=== PATIENT | female | born 1995 | race African-American/Black ===

== ENCOUNTER 2018-02-26 20:37 | Emergency (ER) | payer SELFPAY ==
[2018-02-26 21:15] VITALS: BP 117/61
[2018-02-26] MEDS ORDERED: AZITHROMYCIN 250 MG TABLET PO ONE (22:00)
[2018-02-26] MEDS ORDERED: PREDNISONE 20 MG TABLET PO ONE (22:00)
[2018-02-26] MEDS ORDERED: HYDROCODONE/ACETAMINOPHEN 5-325 MG (6 TAB/ER DISP) PO PRN (22:02)
--- NOTE | 2018-02-26 22:02 | ER Document Report ---
ED General - General Mode of Arrival: Ambulatory Information source: Patient TRAVEL OUTSIDE OF THE [place] IN LAST 30 DAYS: No - General Chief Complaint: Ear Pain Stated Complaint: EAR PAIN Time Seen by Provider: 02/26/18 21:44 Notes: Patient is a 22 year old female with no significant medical history presents to the emergency department complaining of left ear pain, onset today, and sinus congestion onset 3 days ago. Patient's associated symptoms include a fever onset 2 days ago and a non productive cough. 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 (KARY GIANG) - Related Data Allergies/Adverse Reactions: No Known Allergies Allergy (Verified 02/26/18 20:42) Past Medical History - General Information source: Patient - Social History Smoking Status: Unknown if Ever Smoked Family History: Reviewed & Not Pertinent Patient has suicidal ideation: No Patient has homicidal ideation: No Review of Systems - Review of Systems Constitutional: See HPI, Fever EENT: See HPI, Ear pain, Nose congestion, Sinus pressure Cardiovascular: No symptoms reported Respiratory: See HPI, Cough Gastrointestinal: No symptoms reported Genitourinary: No symptoms reported Female Genitourinary: No symptoms reported Musculoskeletal: No symptoms reported Skin: No symptoms reported Hematologic/Lymphatic: No symptoms reported Neurological/Psychological: No symptoms reported -: Yes All other systems reviewed and negative Physical Exam - Vital signs Vitals: Temp Pulse Resp BP Pulse Ox 98.6 F 59 L 12 117/61 100 02/26/18 21:14 02/26/18 21:14 02/26/18 21:14 02/26/18 21:14 02/26/18 21:14 - Notes Notes: GENERAL: Alert, interacts well. No acute distress. HEAD: Normocephalic, atraumatic. EYES: Pupils equal, round, and reactive to light. Extraocular movements intact. ENT: Oral mucosa moist, tongue midline. Nares patent, no nasal septal hematoma. Left TM is erythematous and bulging. Right TM has some erythema and retracted. Tender to palpation over left maxillary sinus. NECK: Full range of motion. Supple. Trachea midline. LUNGS: Clear to auscultation bilaterally, no wheezes, rales, or rhonchi. No respiratory distress. HEART: Regular rate and rhythm. No murmurs, gallops, or rubs. EXTREMITIES: Moves all 4 extremities spontaneously. NEUROLOGICAL: Alert and oriented x3. Normal speech. PSYCH: Normal affect, normal mood. SKIN: Warm, dry, normal turgor. No rashes or lesions noted. (KARY GIANG) - Vital Signs Vital signs: Temp Pulse Resp BP Pulse Ox 98.6 F 59 L 12 117/61 100 02/26/18 21:14 02/26/18 21:14 02/26/18 21:14 02/26/18 21:14 02/26/18 21:14 Discharge - Discharge Clinical Impression: Left otitis media with effusion, Viral upper respiratory tract infection with cough Sinusitis Qualifiers: Sinusitis location: maxillary Chronicity: acute Recurrence: non-recurrent Qualified Code(s): J01.00 - Acute maxillary sinusitis, unspecified Condition: Stable Disposition: HOME, SELF-CARE Additional Instructions: Otitis Media: You have a middle ear infection (otitis media). This is usually a complication of a cold or sore throat. The middle ear cavity becomes filled with infection. Pressure and stretching of the ear drum cause pain. Antibiotics are required. A decongestant may be recommended if you have a "runny nose." A follow-up exam may be recommended to make sure the infection has completely cleared. If the ear begins to drain, it means the ear drum has ruptured. This will usually heal spontaneously. However, it means you should keep the ear dry until re-examined by a doctor. Call the physician or return for examination at once if there is severe headache, stiff neck, confusion, increasing fever, or dizziness. You should improve significantly within two days. If you're not better, call the doctor. Sinusitis: You have sinusitis, an infection of the sinus cavities of the face. The sinuses are air-filled chambers which open into the inside of the nose. Bacteria and pus fill a sinus, causing pain, drainage, and fever. Sinusitis is treated with antibiotics. Often, expectorants (to thin the sinus mucous) or decongestants (to reduce swelling) are prescribed as well. Healing requires seven to 10 days. Avoid chemical fumes, pollens, dusts, and smoke (especially cigarette smoke ). Keep the air humidified in your bedroom and work area and take plenty of liquids by mouth. This condition can be serious if the infection spreads. If your symptoms worsen, or if you develop severe headache, high fever, stiff neck, or a rash, you must call the doctor or return for re-evaluation. Start the prednisone and the azithromycin as prescribed tomorrow. Plenty of fluids and get plenty of rest. Take the pain medication as dispensed a night if needed. Tomorrow take ibuprofen and Tylenol for pain if needed. Try Afrin nose spray on the left side to help open the eustachian tube and drain the left middle ear if the prednisone and taking decongestants does not help. Follow-up with a local medical doctor if not improving. RETURN TO THE EMERGENCY ROOM IF ANY NEW OR WORSENING SYMPTOMS. Prescriptions: Azithromycin [Zithromax 250 mg Tablet] 250 mg PO DAILY #4 tablet Prednisone [Deltasone 10 mg Tablet] 10 mg PO ASDIR PRN #15 tablet PRN Reason: Forms: Return to Work Referrals: DEEPTHI ANTON MD [NO LOCAL MD] - Follow up as needed Scribe Attestation: 02/26/18 22:07 I personally performed the services described in the documentation, reviewed and edited the documentation which was dictated to the scribe in my presence, and it accurately records my words and actions. (KYLAH COREAS) [employer] Documentation - Scribe Written by Radha:: Radha Rodriguez, 02/26/2018 22:19 acting as scribe for :: Allie
== END 2018-02-26 22:24 | disposition home or self-care (01) ==
LOC: ER 20:37
DX: H65.92 Unspecified nonsuppurative otitis media, left ear (principal); J01.00 Acute maxillary sinusitis, unspecified; B97.89 Other viral agents as the cause of diseases classified elsewhere; H92.02 Otalgia, left ear; R09.81 Nasal congestion; R50.9 Fever, unspecified; R05 Cough
CPT/HCPCS: 99282; J7512

== ENCOUNTER 2019-04-12 09:53 | Emergency (ER) | payer BC ==
[2019-04-12] MEDS ORDERED: ACETAMINOPHEN 325 MG TABLET PO ONE (11:32)
--- NOTE | 2019-04-12 13:16 | ER Document Report ---
HPI - HPI Patient complains to provider of: Sore throat Time Seen by Provider: 04/12/19 11:32 Pain Level: 3 Context: Patient is a otherwise healthy 23-year-old female presents to the emergency department for generalized sore throat and subjective fever started Friday night. Patient states when she takes Tylenol or Motrin the pain typically does go away but then resurfaces. Patient's denying any cough, congestion. Patient's denying any medical problems, denies any daily medications, denies any allergies. - CONSTITUTIONAL Constitutional: REPORTS: Fever, Chills - NEURO Neurology: DENIES: Headache, Weakness, Vision blurred, Dizzinesss / Vertigo - REPRODUCTIVE Reproductive: DENIES: : Past Medical History - General Information source: Patient - Social History Smoking Status: Unknown if Ever Smoked Family History: Reviewed & Not Pertinent Patient has suicidal ideation: No Patient has homicidal ideation: No Renal/ Medical History: Denies: Hx Peritoneal Dialysis Vertical Provider Document - CONSTITUTIONAL Agree With Documented VS: Yes Notes: GENERAL: Alert, interacts well. No acute distress. HEAD: Normocephalic, atraumatic. EYES: Pupils equal, round, and reactive to light. Extraocular movements intact. ENT: Oral mucosa moist, tongue midline. Nares patent, TM's intact, nonerythematous, nonbulging bilaterally. Pharynx minorly erythematous tonsils +2 bilaterally and symmetrical, exudate noted bilaterally. No palatal petechiae NECK: Full range of motion. Supple. Trachea midline. No lymphadenopathy appreciated LUNGS: Clear to auscultation bilaterally, no wheezes, rales, or rhonchi. No respiratory distress. HEART: Regular rate and rhythm. No murmur ABDOMEN: Soft, non-tender. Non-distended. Bowel sounds present in all 4 quadrants. EXTREMITIES: Moves all 4 extremities spontaneously. No edema, normal radial and dorsalis pedis pulses bilaterally. No cyanosis. BACK: no cervical, thoracic, lumbar midline tenderness. No saddle anesthesia, normal distal neurovascular exam. NEUROLOGICAL: Alert and oriented x3. Normal speech. cranial nerves II through XII grossly intact. PSYCH: Normal affect, normal mood. SKIN: Warm, dry, normal turgor. No rashes or lesions noted. - INFECTION CONTROL TRAVEL OUTSIDE OF THE [place] IN LAST 30 DAYS: No Course - Re-evaluation Re-evalutation: 04/12/19 13:14 Laboratory 04/12/19 11:35 Group A Strep Rapid NEGATIVE Discussed with patient rapid strep test negative. Discussed sending this for culture. Discussed symptomatic treatment with Tylenol Motrin and saltwater gargles. At this time will discharge with return precautions and follow-up recommendations. Verbal discharge instructions given a the bedside and opportunity for questions given. Medication warnings reviewed. Patient is in agreement with this plan and has verbalized understanding of return precautions and the need for primary care follow-up in the next 24-72 hours. This medical record was dictated with voice recognizing software. There may be grammatical, syntax errors that are unintended. - Vital Signs Vital signs: Temp Pulse Resp BP Pulse Ox 99 F 91 18 125/70 100 04/12/19 10:10 04/12/19 10:10 04/12/19 10:10 04/12/19 10:10 04/12/19 10:10 Discharge - Discharge Clinical Impression: Sore throat (viral) Condition: Stable Disposition: HOME, SELF-CARE Instructions: Fever ([facility]), Sore Throat ([facility]) Additional Instructions: As we discussed you have been seen and treated in the emergency department for sore throat. Your rapid stress test was negative for bacteria. This typically means this infection is caused by a virus. Viruses do not respond to antibiotics. Please make sure you take [id number] Tylenol Motrin for generalized symptomatic pain. Please also use [id number] lozenges. Please follow-up with your primary care provider in the next 24 to 48 hours. Please return to the emergency room for any other concerns. Forms: Return to Work Referrals: SHAHID LIAO MD [Primary Care Provider] - Follow up as needed
[2019-04-12 13:46] VITALS: BP 107/59
== END 2019-04-12 13:47 | disposition home or self-care (01) ==
LOC: ER 09:53
DX: J02.9 Acute pharyngitis, unspecified (principal); R50.9 Fever, unspecified
CPT/HCPCS: 87070; 87077; 87880; 99283